=== PATIENT | female | born 1945 | race Caucasian/White ===

== ENCOUNTER 2024-05-21 08:06 | Outpatient (RCR) | payer MEDICARE, SELFPAY ==
[2024-05-21 10:54] LABS: Hemoglobin 9.7 g/dL (12.0-16.0)
== END 2024-08-04 23:59 | disposition home or self-care (01) ==
LOC: LAB 08:06
PROVIDERS: PCP Family Medicine; Visit Provider Family Medicine
DX: D64.9 Anemia, unspecified (principal)
CPT/HCPCS: 36415; 85018